=== PATIENT | female | born 1995 | race Caucasian/White ===

== ENCOUNTER 2024-06-13 20:51 | Emergency (ER) | payer OTHER ==
[~2024-06-13] VITALS: Ht 167.6 cm; Wt 71.7 kg
[2024-06-13] MEDS ORDERED: Ondansetron HCl 2 MG / ML 2ML Vial IV ONE (21:25)
[2024-06-13] MEDS ORDERED: Mag Hydrox/AL Hydrox/Simeth 30 ML UDC PO ONE (21:25)
[2024-06-13] MEDS ORDERED: Acetaminophen 500 MG Tab PO ONE (21:25)
[2024-06-13 21:32] LABS: BASOPHILS ABSOLUTE AUTO 0.03 K/mm3 (0.00-0.23); BASOPHILS PERCENT AUTO 0 % (0-2); EOSINOPHILS ABSOLUTE AUTO 0.02 K/mm3 (0.00-0.68); EOSINOPHILS PERCENT AUTO 0 % (0-6); Hematocrit 38.3 % (33.0-51.0); Hemoglobin 13.1 g/dL (11.5-16.0); IMMATURE GRAN ABSOLUTE AUTO 0.12 K/mm3 (0.00-0.10); IMMATURE GRAN PERCENT AUTO 1 % (0-1); LYMPHOCYTES ABSOLUTE AUTO 1.37 K/mm3 (0.84-5.20); LYMPHOCYTES PERCENT AUTO 8 % (21-46); MONOCYTES ABSOLUTE AUTO 0.54 K/mm3 (0.16-1.47); MONOCYTES PERCENT AUTO 3 % (4-13); Mean Corpuscular HGB 32.3 pg (26.0-34.0); Mean Corpuscular HGB Conc 34.2 g/dL (31.5-36.5); Mean Corpuscular Volume 95 fL (80-100); Mean Platelet Volume 11.8 fL (9.1-12.4); NEUTROPHILS PERCENT AUTO 89 % (41-73); Platelet Count 230 K/mm3 (150-400); RDW Coefficient Variation 12.7 % (11.7-14.2); Red Blood Cell Count 4.05 M/mm3 (3.80-5.20); White Blood Cell Count 18.28 K/mm3 (4.00-11.30)
[2024-06-13 21:54] LABS: Magnesium, Blood 2.2 mg/dL (1.6-2.4)
[2024-06-13 22:00] LABS: Albumin, Blood 3.2 g/dL (3.4-5.0); Albumin/Globulin Ratio 0.8 (0.8-1.8); Bilirubin, Total 0.2 mg/dL (0.1-1.0); Bun/Creatinine Ratio 15.4 (12.0-20.0); Creatinine, Blood 0.45 mg/dL (0.40-1.00); Potassium, Blood 3.7 mmol/L (3.5-5.5); Total Protein, Blood 7.2 g/dL (6.4-8.2)
[2024-06-13] MEDS ORDERED: Lactated Ringer's 1,000 ML IV ONE (22:25)
[2024-06-13 23:21] LABS: Source, Urine Clean Catch
[2024-06-13 23:29] LABS: Bilirubin, Urine Neg (Neg); Blood, Urine Neg (Neg); Glucose Qualitative, Urine Neg (Neg); Ketones, Urine 4+ (Neg); Leukocyte Esterase, Urine 1+ (Neg); Nitrite, Urine Neg (Neg); Protein, Urine 1+ (Neg); Urobilinogen, Urine NORM (Normal)
[2024-06-13 23:40] LABS: Appearance, Urine Hazy (Clear); Color, Urine Yellow (P-Yellow)
[2024-06-13 23:41] LABS: Amorphous Light (0-Heavy); Bacteria Mod /hpf; Red Blood Cells, Urine Not Seen /hpf (0-2); Squamous Epithelial Cells Few /hpf (Few)
[2024-06-14] MEDS ORDERED: RX Prepack 2 Tabs Ondansetron ODT 4MG UD ONE (00:20)
[2024-06-14] MEDS ORDERED: Cephalexin Monohydrate 500 MG Cap PO ONE (00:20)
[2024-06-14] MEDS ORDERED: CEPH500 PO (00:20)
== END 2024-06-14 00:40 | disposition home or self-care (01) ==
LOC: ER 20:51
PROVIDERS: Student in an Organized Health Care Education/Training Program
DX: O23.12 Infections of bladder in pregnancy, second trimester (principal); N30.90 Cystitis, unspecified without hematuria; Z3A.21 21 weeks gestation of pregnancy
CPT/HCPCS: 76815; 80053; 81001; 83690; 83735; 85025; 86850; 86900; 86901; 87086; 96361; 96374; 99284-25; A9270; J2405; J7120